=== PATIENT | male | born 1975 | race African-American/Black ===

== ENCOUNTER 2018-02-21 11:52 | Emergency (ER) | payer OTHER ==
[~2018-02-21] VITALS: Ht 177.8 cm; Wt 77.3 kg
[~2018-02-21 11:52] MED LIST: NOCURR
[2018-02-21] MEDS ORDERED: PROPARACAINE/FLUORESCEIN SOD 0.5-0.25% 0.5 ML OPHTHALMIC SOLUTION OD ONE (12:45)
[2018-02-21 15:00] VITALS: BP 136/81
== END 2018-02-21 15:15 | disposition home or self-care (01) ==
LOC: EMS 11:53
DX: T15.01XA Foreign body in cornea, right eye, initial encounter (principal); F17.210 Nicotine dependence, cigarettes, uncomplicated; F12.90 Cannabis use, unspecified, uncomplicated; Z88.0 Allergy status to penicillin; X58.XXXA Exposure to other specified factors, initial encounter; Y93.E9 Activity, other interior property and clothing maintenance; Y92.89 Other specified places as the place of occurrence of the external cause; Y99.0 Civilian activity done for income or pay
CPT/HCPCS: 65222; 99284

== ENCOUNTER 2020-08-29 16:13 | Emergency (ER) | payer OTHER ==
[~2020-08-29] VITALS: Ht 175.3 cm; Wt 75.0 kg
[2020-08-29 18:15] VITALS: BP 131/74
== END 2020-08-29 18:35 | disposition home or self-care (01) ==
LOC: EMS 16:13
DX: S63.501A Unspecified sprain of right wrist, initial encounter (principal); L73.1 Pseudofolliculitis barbae; F17.210 Nicotine dependence, cigarettes, uncomplicated; F12.90 Cannabis use, unspecified, uncomplicated; Z88.0 Allergy status to penicillin; W01.0XXA Fall on same level from slipping, tripping and stumbling without subsequent striking against object, initial encounter; Y93.51 Activity, roller skating (inline) and skateboarding; Y92.89 Other specified places as the place of occurrence of the external cause; Y99.8 Other external cause status
CPT/HCPCS: 99283